=== PATIENT | male | born 1975 | race Caucasian/White ===

== ENCOUNTER 2017-06-07 02:18 | Emergency (ER) | payer SELFPAY ==
[~2017-06-07] VITALS: Ht 177.8 cm; Wt 113.0 kg
[2017-06-07] MEDS ORDERED: KETOROLAC 60MG/2ML VIAL IM ONE (04:15)
[2017-06-07] MEDS ORDERED: HYDROCODONE/ACETAMINOPHEN 5/325MG TABLET PO ONE (04:45)
[2017-06-07 06:05] VITALS: BP 124/60
== END 2017-06-07 06:17 | disposition home or self-care (01) ==
LOC: ER 02:18
DX: S52.502A Unspecified fracture of the lower end of left radius, initial encounter for closed fracture (principal); S52.612A Displaced fracture of left ulna styloid process, initial encounter for closed fracture; W01.0XXA Fall on same level from slipping, tripping and stumbling without subsequent striking against object, initial encounter; Y93.89 Activity, other specified; Y92.89 Other specified places as the place of occurrence of the external cause; R03.0 Elevated blood-pressure reading, without diagnosis of hypertension
CPT/HCPCS: 29125; 73110; 96372; 99284; J1885; Z7610